=== PATIENT | male | born 1995 | race Caucasian/White ===

== ENCOUNTER 2018-05-16 08:53 | Emergency (ER) | payer OTHER ==
[2018-05-16] MEDS: IBUPROFEN 800 MG TAB PO (09:36)
== END 2018-05-16 10:48 | disposition home or self-care (01) ==
LOC: M ED 08:53
DX: S93.402A Sprain of unspecified ligament of left ankle, initial encounter (principal); X50.9XXA Other and unspecified overexertion or strenuous movements or postures, initial encounter; Y92.59 Other trade areas as the place of occurrence of the external cause; Y99.0 Civilian activity done for income or pay
CPT/HCPCS: 73610